=== PATIENT | male | born 1990 | race African-American/Black ===

== ENCOUNTER 2017-06-08 12:33 | Emergency (ER) | payer SELFPAY ==
[2017-06-08 12:40] VITALS: BP 109/67; PULSE 57; RESP 16; TEMP 98.4; O2SAT 98
--- NOTE | 2017-06-08 13:17 | EDPHY ---
H & P Stated Complaint: Both elbows inflammed after "heavy workout" last ;pt concern re:rhabdo Time Seen by Provider: 06/08/17 13:02 HPI/ROS: CHIEF COMPLAINT: Arm swelling HISTORY OF PRESENT ILLNESS: The patient is a 27-year-old man who comes to the emergency department complaining of swelling in both arms ever since a strenuous workout 6 days ago. He states that he did a bunch of pull-ups and lifts and clean and jerk. Since that time his arms have been very painful and swollen bilaterally particularly in the forearms and brachioradialis. His symptoms speaks about 4 days ago but they have been improving since that time. He was reading on the Internet and came to the emergency department because he was concerned about rhabdomyolysis. He has not had a fever. He has not had any dark colored urine. REVIEW OF SYSTEMS: Constitutional: denies: chills, fever, recent illness, recent injury EENTM: denies: blurred vision, double vision, nose congestion Respiratory: denies: cough, shortness of breath Cardiac: denies: chest pain, irregular heart rate, lightheadedness, palpitations Gastrointestinal/Abdominal: denies: abdominal pain, diarrhea, nausea, vomiting, blood streaked stools Genitourinary: denies: dysuria, frequency, hematuria, pain Musculoskeletal: See HPI Skin: denies: lesions, rash, jaundice, bruising Neurological: denies: headache, numbness, paresthesia, tingling, dizziness, weakness Hematologic/Lymphatic: denies: blood clots, easy bleeding, easy bruising Immunologic/allergic: denies: HIV/AIDS, transplant EXAM: GENERAL: Well-appearing, well-nourished and in no acute distress. HEAD: Atraumatic, normocephalic. EYES: Pupils equal round and reactive to light, extraocular movements intact, sclera anicteric, conjunctiva are normal. ENT: TMs normal, nares patent, oropharynx clear without exudates. Moist mucous membranes. NECK: Normal range of motion, supple without lymphadenopathy or JVD. LUNGS: Breath sounds clear to auscultation bilaterally and equal. No wheezes rales or rhonchi. HEART: Regular rate and rhythm without murmurs, rubs or gallops. ABDOMEN: Soft, nontender, normoactive bowel sounds. No guarding, no rebound. No masses appreciated. BACK: No CVA tenderness, no spinal tenderness, step-offs or deformities EXTREMITIES: Pain to the brachioradialis and forearm region. Moderate swelling. No bony tenderness. Normal range of motion. NEUROLOGICAL: Cranial nerves II through XII grossly intact. Normal speech, normal gait. 5/5 strength, normal movement in all extremities, normal sensation PSYCH: Normal mood, normal affect. SKIN: Warm, dry, normal turgor, no visible rashes or lesions. Source: Patient Exam Limitations: No limitations - Personal History Current Tetanus Diphtheria and Acellular Pertussis (TDAP): Yes - Medical/Surgical History Hx Asthma: Yes Hx Diabetes: No Hx Cardiac Disease: No Hx Renal Disease: No Hx Cirrhosis: No Hx Alcoholism: No Other PMH: healthy - Family History Significant Family History: No pertinent family hx - Social History Smoking Status: Former smoker Alcohol Use: Sober Drug Use: None Constitutional: Initial Vital Signs Temperature (C) 36.9 C 06/08/17 12:35 Heart Rate 57 L 06/08/17 12:35 Respiratory Rate 16 06/08/17 12:35 Blood Pressure 109/67 06/08/17 12:35 O2 Sat (%) 98 06/08/17 12:35 O2 Delivery Mode Room Air Allergies/Adverse Reactions: No Known Allergies Allergy (Unverified 06/08/17 12:40) Home Medications: Medication Instructions Recorded NK [No Known Home Meds] 06/08/17 Medical Decision Making ED Course/Re-evaluation: The patient was concerned about rhabdomyolysis. He may have had some degree of this a day or 2 after the workout however it has been almost a week and his symptoms are improving. I offered to test his blood work but he declines and feels reassured. I suspect a degree of muscle tear versus tendinitis or bursitis. I recommend he treat with rest and anti-inflammatories and follow- up. He understands and agrees with this plan. Differential Diagnosis: Partial list of the Differential diagnosis considered include but were not limited to; myositis, tendonitis, bursitis, fasciitis and although unlikely based on the history and physical exam, I also considered compartment syndrome, rhabdomyolysis, infection, fracture, dislocation, nerve injury, vascular injury. I discussed these differential diagnoses and the plan with the patient as well as the usual and expected course. The patient understands that the diagnosis is provisional and that in medicine we are not always correct and that further workup is often warranted. Usual and customary warnings were given. All of the patient's questions were answered. The patient was instructed to return to the emergency department should the symptoms at all worsen or return, otherwise to followup with the physician as we discussed. Departure - Departure Disposition: Home, Routine, Self-Care Clinical Impression: Tendinitis Condition: Fair Instructions: Tendinitis (ED) Referrals: NONE *PRIMARY CARE P,. [Primary Care Provider] - As per Instructions Michelle Hutchinson MD [Medical Doctor] - As per Instructions
== END 2017-06-08 13:30 | disposition home or self-care (01) ==
DX: M77.9 Enthesopathy, unspecified (principal); J45.909 Unspecified asthma, uncomplicated; Z87.891 Personal history of nicotine dependence